=== PATIENT | male | born 1970 | race Caucasian/White ===

== ENCOUNTER 2018-04-05 19:34 | Emergency (ER) | payer SELFPAY ==
[~2018-04-05] VITALS: Ht 175.3 cm; Wt 73.0 kg
[2018-04-05 19:44] VITALS: BP 155/90; PULSE 78; RESP 16; TEMP 97.9; O2SAT 99
--- NOTE | 2018-04-05 19:56 | PD ---
HPI Chief Complaint: Alcohol/Drug Intoxication Time Seen by Provider: 19:50 Travel History International Travel<30 days: No Contact w/Intl Traveler<30days: No Traveled to known affect area: No History of Present Illness HPI Patient is a 48-year-old male presenting to the emergency department under a [place] act. Patient was found passed out in the median. He was surrounded by beer cans and he was getting bit by ants. Officer attempted to stand him up when patient almost fell into the road. Patient was brought to the emergency department for his own safety. Patient admits to drinking "a lot" of beer today. He has no physical complaints at this time. FOR[facility], [facility] Past Medical History Diminished Hearing: No Past Surgical History Abdominal Surgery: Yes Social History Alcohol Use: Yes Tobacco Use: Yes Allergies-Medications (Allergen,Severity, Reaction): Coded Allergies: No Known Allergies (Unverified Adverse Reaction, Unknown, 04/05/18) Review of Systems ROS Limitations: Intoxication Except as stated in HPI: all other systems reviewed are Neg Physical Exam Narrative GENERAL: Well-developed, well-nourished, intoxicated appearing male. Presenting in no acute distress. SKIN: Warm and dry. HEAD: Atraumatic. Normocephalic. EYES: Pupils equal and round. No scleral icterus. No injection or drainage. ENT: No nasal bleeding or discharge. Mucous membranes pink and moist. NECK: Trachea midline. No JVD. CARDIOVASCULAR: Regular rate and rhythm. RESPIRATORY: No accessory muscle use. Clear to auscultation. Breath sounds equal bilaterally. GASTROINTESTINAL: Abdomen soft, non-tender, nondistended. Hepatic and splenic margins not palpable. MUSCULOSKELETAL: Extremities without clubbing, cyanosis, or edema. No obvious deformities. NEUROLOGICAL: Awake and alert. No obvious cranial nerve deficits. Motor grossly within normal limits. Five out of 5 muscle strength in the arms and legs. Normal speech. PSYCHIATRIC: Appropriate mood and affect; insight and judgment normal. Data Data Last Documented VS Vital Signs Date Time Temp Pulse Resp B/P (MAP) Pulse Ox O2 Delivery O2 Flow Rate FiO2 04/05/18 19:44 97.9 78 16 155/90 (111) 99 Orders Orders Sodium Chlor 0.9% 1000 Ml Inj (Ns 1000 M (04/05/18 20:00) Alcohol (Ethanol) (04/05/18 19:50) Iv Access Insert/Monitor (04/05/18 19:50) Sodium Chlor 0.9% 1000 Ml Inj (Ns 1000 M (04/05/18 20:45) Ed Discharge Order (04/06/18 06:31) Labs Laboratory Tests Test 04/05/18 19:59 Ethyl Alcohol Level 402 MG/DL MDM Medical Decision Making Medical Screen Exam Complete: Yes Emergency Medical Condition: Yes Interpretation(s) Vital Signs Date Time Temp Pulse Resp B/P (MAP) Pulse Ox O2 Delivery O2 Flow Rate FiO2 04/05/18 19:44 97.9 78 16 155/90 (111) 99 Differential Diagnosis Intoxication versus ant bites versus allergic reaction versus other Narrative Course Patient is otherwise well-appearing 48-year-old male presenting due to public intoxication after being found in the median of the road. Patient's vital signs are stable, will check alcohol level now to determine how intoxicated patient has. IV access was established, patient was given a liter of IV fluids. Patient will be discharged when he is clinically sober, can demonstrate safe ambulation and sound decision-making skills. Patient's blood alcohol level is 402. Patient was reassessed at 06 30 this morning. Patient was able to demonstrate safe ambulation, he appears sober. Patient was discharged home at this time. Diagnosis Primary Impression: Acute alcohol intoxication Qualified Codes: F10.929 - Alcohol use, unspecified with intoxication, unspecified Referrals: [facility] Patient Instructions: Alcohol Intoxication (DC), General Instructions Additional Instructions: Avoid excessive intake of alcohol Drink more water Follow-up with Hu Murphy Return to emergency department for any new or worsening symptoms Med/Other Pt SpecificInfo: No Change to Meds Disposition: 01 DISCHARGE HOME Condition: Stable Yue Erickson April 05, 2018 19:56
[2018-04-05] MEDS ORDERED: SODIUM CHLOR 0.9% 1000 ML INJ 1,000 ML IV ONE ×2 (20:00→20:45)
[2018-04-06 06:34] VITALS: BP 146/88
== END 2018-04-06 06:42 | disposition home or self-care (01) ==
LOC: NEPD 19:34
DX: F10.929 Alcohol use, unspecified with intoxication, unspecified (principal); Y90.8 Blood alcohol level of 240 mg/100 ml or more; Z72.0 Tobacco use
CPT/HCPCS: 80307; 96360; 96361; 99284; J7030